=== PATIENT | male | born 1950 | race Caucasian/White ===

== ENCOUNTER 2022-12-14 06:04 | Day surgery (SDC) | payer MEDICARE, BC ==
[2022-12-07 15:44] VITALS: BMI 28.8
[2022-12-07 16:10] LABS: Hematocrit 42.6 % (38.8-50.0); Hemoglobin 14.1 g/dL (13.5-17.5); Mean Corpuscular HGB CONC 33.1 g/dL (32.0-36.0); Mean Corpuscular Hemoglobin 29.7 pg (27.0-33.0); Mean Corpuscular Volume 89.7 fl (81.2-95.1); Mean Platelet Volume 10.4 fl (7.4-10.4); Platelet Count 253 10x3/uL (150-450); RBC Distribution Width 12.4 % (11.5-14.5); Red Blood Cell (RBC) Count 4.75 10x6/uL (4.32-5.72); White Blood Cell (WBC) Count 7.7 10x3/uL (3.5-10.5)
[2022-12-07 16:16] LABS: Prothrombin Time 11.1 sec (9.5-12.1)
[2022-12-07 16:35] LABS: Anion Gap 17 mmol/L (10-20); BUN (Urea Nitrogen) 20 mg/dL (8.4-25.7); Calc. Creatinine Clearance 76 mL/min (70-130); Carbon Dioxide 26 mmol/L (23-31); Chloride 105 mmol/L (98-107); Potassium 4.5 mmol/L (3.5-5.1); Sodium 143 mmol/L (136-145)
[2022-12-07 16:36] LABS: Calcium 9.5 mg/dL (7.8-10.44); Estimated GFR 62; Glucose 92 mg/dL (83-110)
[2022-12-14] MEDS ORDERED: Isoproterenol 0.2 MG/1 ML AMP ONE (07:02)
[2022-12-14] MEDS ORDERED: Heparin 10,000 UNITS/ 10 ML VIAL ONE (07:02)
[2022-12-14] MEDS ORDERED: Protamine Sulfate 50 MG/5 ML VIAL ONE (07:02)
[2022-12-14] MEDS ORDERED: Midazolam HCl 2 mg/2 ml Vial ONE (08:06)
[2022-12-14] MEDS ORDERED: fentaNYL 50 mcg/mL 1 mL Vial ONE ×3 (08:11→09:50)
[2022-12-14] MEDS ORDERED: PROPOFOL 200 MG/20 ML VIAL ONE (08:13)
== END 2022-12-14 13:00 | disposition home or self-care (01) ==
LOC: SDC 06:04
PROVIDERS: ATTEND Internal Medicine Cardiovascular Disease
DX: I48.3 Typical atrial flutter (principal); I10 Essential (primary) hypertension; G47.33 Obstructive sleep apnea (adult) (pediatric); Z92.89 Personal history of other medical treatment; E78.2 Mixed hyperlipidemia; H26.9 Unspecified cataract; Z90.89 Acquired absence of other organs; Z79.01 Long term (current) use of anticoagulants; Z79.899 Other long term (current) drug therapy
CPT/HCPCS: 80048; 85027; 85610; 93005; 93613; 93621; 93653; 93662; C1731; C1732; C1759; C1760; C1894 ×4; J3010; J1644; J2250; J2704; J2720